=== PATIENT | male | born 1960 | race Caucasian/White ===

== ENCOUNTER 2017-04-04 14:34 | Emergency (ER) | payer MEDICAID ==
[2017-04-04 14:35] VITALS: BMI 28.7
[2017-04-04 14:54] VITALS: O2SAT 98
[2017-04-04] MEDS ORDERED: Lidocaine 2% Inj (20ml) IJ STA (15:13)
--- NOTE | 2017-04-04 15:17 | ED PDOC ---
Arrival/HPI - General Chief Complaint: Abnormal Skin Integrity Time Seen by Provider: 04/04/17 15:12 Historian: Patient - History of Present Illness Narrative History of Present Illness (Text): the patient is a 56yo male, presents to the Emergency department for evaluation of a laceration to his left leg sustained prior to arrival. Patient reports he was walking and grazed an aluminum door, sustaining the laceration. He denies any pain to his knee. Pt states his last tetanus was 1 year ago. He offers no additional medical complaints. Time/Duration: Prior to Arrival Symptom Onset: Sudden Past Medical History - Provider Review Nursing Documentation Reviewed: Yes - Past History Past History: No Previous - Infectious Disease Hx of Infectious Diseases: None - Tetanus Immunization Tetanus Immunization: Up to Date - Past Medical History Past Medical History: No Previous - Psychiatric Hx Depression: No Hx Emotional Abuse: No Hx Physical Abuse: No Hx Substance Use: No - Surgical History Other/Comment: hand - Anesthesia Hx Anesthesia: No - Suicidal Assessment Feels Threatened In Home Enviroment: No Family/Social History - Physician Review Nursing Documentation Reviewed: Yes Family/Social History: No Known Family HX Smoking Status: Unknown If Ever Smoked Hx Alcohol Use: No Hx Substance Use: No Hx Substance Use Treatment: No Allergies/Home Meds Allergies/Adverse Reactions: Allergies No Known Allergies Allergy (Verified 04/04/17 14:54) Home Medications: Home Meds Medication Instructions Recorded Confirmed No Known Home Med 04/04/17 04/04/17 Review of Systems - Review of Systems Constitutional: Normal Eyes: Normal ENT: Normal Respiratory: Normal Cardiovascular: Normal. absent: Chest Pain Gastrointestinal: Normal Genitourinary Male: Normal Musculoskeletal: Normal. absent: Other (knee pain) Skin: Laceration (laceration to right leg above the knee) Neurological: Normal Endocrine: Normal Hemo/Lymphatic: Normal Psychiatric: Normal Physical Exam - Physical Exam Narrative Physical Exam (Text): Constitutional: No acute distress. Head: Normocephalic. Atraumatic. Eyes: PERRL. ENT: Moist mucous membranes. Neck: Supple. Cardiovascular: Regular rate. Chest: No tenderness. Respiratory: Clear to auscultation bilaterally. GI: Soft. Nontender. Nondistended. Back: No CVA tenderness. Musculoskeletal: No tenderness or swelling of extremities. No bony tenderness right lower extremity. Full ROM at right knee. Skin: 3.0 cm laceration above right knee, no active bleeding. Neurologic: Alert, no focal deficit. Vital Signs Temp Pulse Resp BP Pulse Ox 04/04/17 15:38 98.8 F 75 18 121/75 98 04/04/17 14:50 99.3 F 88 16 118/81 98 Medical Decision Making ED Course and Treatment: -- Laceration repair, see procedure note. Wound explored, no foreign body or material found but informed to watch for signs of infection. Return in 7 days for suture removal. Return immediately for worsening pain, redness, discharge. - Medication Orders Current Medication Orders: Discontinued Medications Lidocaine HCl (Lidocaine 2% 20ml Vial) 2 ml IJ STAT STA Stop: 04/04/17 15:14 Procedure: Wound Repair - Time Performed Time Performed: 15:19 - Time Out Time Out: Side verified, Site verified, Patient ID confirmed - Consent Obtained Consent obtained: Verbal - Performed by Performed by: Attending Physician - Indications Indication(s):: Laceration - Location Location:: Right, Anterior, Leg Shape:: Linear - Anesthetic Technique Local/Regional Anesthetic:: Lidocaine 2% - Debris Debris:: None - Complexity Complexity:: Simple (one layer) - Wound repair method Sutures:: # (4), Size (3:0), Type (Nylon), Technique (simple-interrupted) - Patient tolerated procedure Patient Tolerated Procedure:: Well - Scribe Statement The provider has reviewed the documentation as recorded by the Melisa Booker Provider Attestation: All medical record entries made by the Dominicibyoel were at my direction and personally dictated by me. I have reviewed the chart and agree that the record accurately reflects my personal performance of the history, physical exam, medical decision making, and the department course for this patient. I have also personally directed, reviewed, and agree with the discharge instructions and disposition. Disposition/Present on Arrival - Present on Arrival Any Indicators Present on Arrival: No History of DVT/PE: No History of Uncontrolled Diabetes: No Urinary Catheter: No History of Decub. Ulcer: No History Surgical Site Infection Following: None - Disposition Have Diagnosis and Disposition been Completed?: Yes Diagnosis: Laceration Disposition: HOME/ ROUTINE Disposition Time: 15:41 Patient Plan: Discharge Patient Problems: Current Active Problems Problem Status Onset Laceration Acute Condition: STABLE Discharge Instructions (ExitCare): Laceration (ED), Care For Your Stitches (ED) Referrals: Stephie Sandhu MD [Primary Care Provider] - Follow up with primary Forms: N-Sided (Japanese)
[2017-04-04 15:39] VITALS: BP 121/75; PULSE 75; RESP 18; TEMP 98.8
== END 2017-04-04 16:02 | disposition home or self-care (01) ==
LOC: ED 14:34
DX: S81.812A Laceration without foreign body, left lower leg, initial encounter (principal); W22.8XXA Striking against or struck by other objects, initial encounter; Y93.01 Activity, walking, marching and hiking

== ENCOUNTER 2017-04-15 18:36 | Emergency (ER) | payer MEDICAID ==
--- NOTE | 2017-04-15 18:40 | ED PDOC ---
Arrival/HPI - General Time Seen by Provider: 04/15/17 18:39 Historian: Patient - History of Present Illness Narrative History of Present Illness (Text): 04/15/17 18:40 56 y/o male, here for the suture removal s/p sutured about 11 days ago on the rt. thigh. Pt. stated that the wound has been healing well but the redness persist, no fever or chills, no night sweat, on the topical antibiotic, no numbness or tingling, no rash, no other medical or psychological complaints. Past Medical History - Provider Review Nursing Documentation Reviewed: Yes - Past History Past History: No Previous - Infectious Disease Hx of Infectious Diseases: None - Tetanus Immunization Tetanus Immunization: Up to Date - Past Medical History Past Medical History: No Previous - Psychiatric Hx Depression: No Hx Emotional Abuse: No Hx Physical Abuse: No Hx Substance Use: No - Surgical History Other/Comment: hand - Anesthesia Hx Anesthesia: No - Suicidal Assessment Feels Threatened In Home Enviroment: No Family/Social History - Physician Review Nursing Documentation Reviewed: Yes Family/Social History: Unknown Family HX Smoking Status: Unknown If Ever Smoked Hx Alcohol Use: No Hx Substance Use: No Hx Substance Use Treatment: No Allergies/Home Meds Allergies/Adverse Reactions: Allergies No Known Allergies Allergy (Verified 04/15/17 18:57) Review of Systems - Review of Systems Constitutional: absent: Fatigue, Fevers Eyes: absent: Vision Changes ENT: absent: Hearing Changes Respiratory: absent: SOB, Cough Cardiovascular: absent: Chest Pain Gastrointestinal: absent: Abdominal Pain, Diarrhea, Nausea, Vomiting Skin: Laceration, Cellulitis. absent: Rash, Pruritis, Skin Lesions, Abscess, Ulcer Neurological: absent: Headache, Dizziness Physical Exam Vital Signs Reviewed: Yes Vital Signs Temp Pulse Resp BP Pulse Ox 04/15/17 18:53 98.0 F 68 18 114/65 99 Temperature: Afebrile Blood Pressure: Normal Pulse: Regular Respiratory Rate: Normal Appearance: Positive for: Well-Appearing, Non-Toxic, Comfortable Pain Distress: Mild Mental Status: Positive for: Alert and Oriented X 3 - Systems Exam Head: Present: Atraumatic, Normocephalic Pupils: Present: PERRL Extroacular Muscles: Present: EOMI Conjunctiva: Present: Normal Mouth: Present: Moist Mucous Membranes Neck: Present: Normal Range of Motion Respiratory/Chest: Present: Clear to Auscultation, Good Air Exchange. No: Respiratory Distress, Accessory Muscle Use Cardiovascular: Present: Regular Rate and Rhythm, Normal S1, S2. No: Murmurs Abdomen: Present: Normal Bowel Sounds. No: Tenderness, Distention, Peritoneal Signs Upper Extremity: Present: Normal Inspection. No: Cyanosis, Edema Lower Extremity: Present: Normal Inspection. No: Edema Neurological: Present: GCS=15, Speech Normal, Motor Func Grossly Intact, Gait Normal, Memory Normal Skin: Present: Warm, Dry, Rashes (Rt. anterior lateral thigh visible 3cm with 4 nylon stutures with erythematous noted but no fluctuant abscess, no streaking or ulcers, FROM without limitation, sensation intact, motor 5/5. ), Normal Color Psychiatric: Present: Alert, Oriented x 3, Normal Insight, Normal Concentration Medical Decision Making ED Course and Treatment: 04/15/17 19:26 -4 sutures removed with success, no visible further sutures noted. -Keflex and bactrim ds ordered -Discharge home with keflex, bactrim, clean the wound with soap and water twice daily, follow up with your own pmd within 2 days, return to the ER for any new or worsening signs or symptoms. - PA / EXHIBIT CLEANER / Resident Statement MD/ has reviewed & agrees with the documentation as recorded. Disposition/Present on Arrival - Present on Arrival Any Indicators Present on Arrival: No History of DVT/PE: No History of Uncontrolled Diabetes: No Urinary Catheter: No History of Decub. Ulcer: No History Surgical Site Infection Following: None - Disposition Have Diagnosis and Disposition been Completed?: Yes Diagnosis: Visit for suture removal, Cellulitis Disposition: HOME/ ROUTINE Disposition Time: 19:27 Patient Plan: Discharge Condition: GOOD Discharge Instructions (ExitCare): Cellulitis (ED) Additional Instructions: -Discharge home with keflex, bactrim, clean the wound with soap and water twice daily, follow up with your own pmd within 2 days, return to the ER for any new or worsening signs or symptoms. Prescriptions: Cephalexin [cephalexin] 500 mg PO TID #30 cap Sulfamethoxazole/Trimethoprim [Bactrim DS 800 mg-160 mg] 1 tab PO BID #20 tab Forms: WORK NOTE
[2017-04-15 18:52] VITALS: BMI 27.9
[2017-04-15 18:53] VITALS: BP 114/65; PULSE 68; RESP 18; TEMP 98; O2SAT 99
[2017-04-15] MEDS ORDERED: Tmp-Smz 800 mg-160 mg DS Tab PO STA (19:31)
== END 2017-04-15 19:49 | disposition home or self-care (01) ==
LOC: ED 18:36
DX: Z48.02 Encounter for removal of sutures (principal); L03.115 Cellulitis of right lower limb